=== PATIENT | male | born 1945 | race Caucasian/White ===

== ENCOUNTER 2021-09-24 05:12 | Emergency (ER) | payer OTHER ==
[~2021-09-24] VITALS: Ht 182.9 cm; Wt 100.0 kg
[2021-09-24 06:50] LABS: Urine Bacteria FEW /hpf (None Seen); Urine Blood 3+ /uL (Negative); Urine Mucus FEW (None Seen); Urine Specific Gravity 1.014 (1.001-1.035); Urine WBC 14 /hpf (0 - 3)
[2021-09-24 07:00] LABS: Basophils # (auto) 0 10 ^3/uL (0-0.2); Basophils % (auto) 0.4 % (0.0-2.0); Eosinophils # (auto) 0.4 10 ^3/uL (0-0.8); Eosinophils % (auto) 4.6 % (0.0-7.0); Hematocrit 36.4 % (41.0-53.0); Hemoglobin 12.6 g/dL (13.5-17.5); Lymphocytes # (auto) 1.3 10 ^3/uL (0.4-5.4); Lymphocytes % (auto) 14.4 % (10.0-50.0); Mean Corpuscular Hemoglobin 28.9 pg (28.0-32.0); Mean Corpuscular Hgb Conc. 34.6 g/dL (32.0-36.0); Mean Corpuscular Volume 83.5 fL (80.0-100.0); Monocytes # (auto) 0.8 10 ^3/uL (0-1.3); Monocytes % (auto) 8.9 % (0.0-12.0); Neutrophils # (auto) 6.6 10 ^3/uL (1.6-8.6); Neutrophils % (auto) 71.7 % (37.0-80.0); Nucleated Red Blood Cells % 0.1 %; Red Blood Cells 4.36 10^6/uL (4.5-5.90); Red Cell Distribution Width 14.7 % (11.8-14.3); White Blood Cell 9.2 10^3/uL (4.4-10.8)
[2021-09-24 07:56] LABS: Albumin 3.7 g/dL (3.4-5.0); Calcium 9.5 mg/dL (8.5-10.1); Potassium 3.2 mmol/L (3.5-5.1)
[2021-09-24 08:01] LABS: BUN/Creatinine Ratio 13.7; Bilirubin, Total 1.1 mg/dL (0.2-1.0); Total Protein 7.5 g/dL (6.4-8.2)
[2021-09-24 08:38] VITALS: BP 174/64
[2021-09-24] MEDS ORDERED: NITR-87 PO (10:36)
== END 2021-09-24 11:18 | disposition left against medical advice (07) ==
LOC: ER 05:12
DX: N39.0 Urinary tract infection, site not specified (principal); R31.9 Hematuria, unspecified; E11.9 Type 2 diabetes mellitus without complications; I10 Essential (primary) hypertension
CPT/HCPCS: 36415; 71045; 74176; 80053; 81001; 85025

== ENCOUNTER 2023-06-19 17:37 | Emergency (ER) | payer OTHER ==
[~2023-06-19] VITALS: Ht 182.9 cm; Wt 78.0 kg
[~2023-06-19 17:37] MED LIST: ACE650RS PO; ASPI-325 PO; ASPI81TA10 PO; ATOR20TA50 PO; DICL1GEL72 EX; FURO40TA4 PO; HYDR-4902 PO; INSU70IN3 SC; LIDO5DIS21 TOP; MET25T PO; METO25TA5 PO; NITR-87 PO; PEN400T PO; POTA-211 PO; SACU1TAB PO; SENN-62 PO; TICA90TA PO
[2023-06-19 18:51] LABS: Basophils # (auto) 0.1 10 ^3/uL (0-0.2); Basophils % (auto) 0.6 % (0.0-2.0); Eosinophils # (auto) 0.1 10 ^3/uL (0-0.8); Eosinophils % (auto) 0.5 % (0.0-7.0); Hematocrit 32.1 % (41.0-53.0); Hemoglobin 10.1 g/dL (13.5-17.5); Lymphocytes % (auto) 10.6 % (10.0-50.0); Mean Corpuscular Hemoglobin 28.6 pg (28.0-32.0); Mean Corpuscular Hgb Conc. 31.3 g/dL (32.0-36.0); Mean Corpuscular Volume 91.1 fL (80.0-100.0); Monocytes # (auto) 0.8 10 ^3/uL (0-1.3); Monocytes % (auto) 8.1 % (0.0-12.0); Neutrophils # (auto) 7.5 10 ^3/uL (1.6-8.6); Neutrophils % (auto) 80.2 % (37.0-80.0); Nucleated Red Blood Cells % 0.1 %; Red Blood Cells 3.52 10^6/uL (4.5-5.90); White Blood Cell 9.3 10^3/uL (4.4-10.8)
[2023-06-19 18:52] LABS: Red Cell Distribution Width 20.2 % (11.8-14.3)
[2023-06-19 19:09] LABS: Alanine Aminotransferase 12 U/L (7-40); Albumin 3.9 g/dL (3.2-4.8); Alkaline Phosphatase 699 U/L (46-116); Anion Gap 12 (5-15); Aspartate Aminotransferase 86 U/L (13-40); BUN/Creatinine Ratio 22.2 (10.0-20.0); Bilirubin, Total 0.8 mg/dL (0.2-1.0); Blood Urea Nitrogen 20 mg/dL (9-23); Calcium 9.3 mg/dL (8.5-10.1); Carbon Dioxide 26 mmol/L (20-30); Chloride 104 mmol/L (98-107); Glucose 176 mg/dL (74-106); Potassium 3.4 mmol/L (3.5-5.1); Sodium 142 mmol/L (136-145)
[2023-06-19 20:26] VITALS: PULSE 90; RESP 16; O2SAT 94
[2023-06-19] MEDS: POTASSIUM CHL 20 Meq TABLET PO ONE (23:26)
[2023-06-19] MEDS: SODIUM CHLORIDE 0.9% 1,000 ML IV ONE (23:26)
[2023-06-19] MEDS: IOHEXOL 350 MG/ML 100ML IJ ONE (23:43)
[2023-06-20 01:02] LABS: Urine Bacteria None Seen /hpf (None Seen)
[2023-06-20 01:24] LABS: Urine Blood 3+ /uL (Negative); Urine Clarity Turbid (Clear); Urine Color Yellow (Yellow); Urine Protein, UAD 1+ (Negative); Urine Specific Gravity 1.021 (1.001-1.035); Urine Urobilinogen Normal (Negative); Urine WBC 9 /hpf (0 - 3); Urine pH 5.5 (5.0-9.0)
[2023-06-20 07:30] VITALS: PULSE 101; RESP 15; O2SAT 99
[2023-06-20] MEDS ORDERED: ABIR250T2 PO (12:42)
[2023-06-20] MEDS ORDERED: METO-289 PO (12:42)
[2023-06-20] MEDS ORDERED: NIFE1TAB30 PO (12:42)
[2023-06-20] MEDS ORDERED: ASPI1TAB20 PO (12:42)
[2023-06-20] MEDS ORDERED: ATOR40TA52 PO (12:42)
[2023-06-20] MEDS ORDERED: SACU1TAB PO (12:42)
[2023-06-20] MEDS ORDERED: INSU100I28 IJ (13:14)
[2023-06-20] MEDS ORDERED: SENN-58 PO (13:14)
[2023-06-20] MEDS ORDERED: PRE1T PO (13:14)
[2023-06-20] MEDS ORDERED: EMPA1TAB3 PO (13:14)
[2023-06-20] MEDS ORDERED: INSU100I70 SC (13:14)
[2023-06-20] MEDS: HYDROcodone-ACET 10/325MG TAB PO ONE (17:36)
[2023-06-20 19:30] VITALS: BP 103/46; PULSE 91; RESP 26; TEMP 98.7; O2SAT 100
[2023-06-20] MEDS ORDERED: ATORVASTATIN 20 MG TAB PO SCH (22:00)
[2023-06-21] MEDS ORDERED: METOPROLOL SUCCINATE XL 50 MG TAB PO SCH (10:00)
[2023-06-21] MEDS ORDERED: ASPirin-EC 81 mg tab PO SCH (10:00)
== END 2023-06-20 20:45 | disposition home or self-care (01) ==
LOC: EDBD 17:37 → ER 17:37
DX: S22.030A Wedge compression fracture of third thoracic vertebra, initial encounter for closed fracture (principal); S42.001A Fracture of unspecified part of right clavicle, initial encounter for closed fracture; R26.9 Unspecified abnormalities of gait and mobility; E11.9 Type 2 diabetes mellitus without complications; I10 Essential (primary) hypertension; J44.9 Chronic obstructive pulmonary disease, unspecified; Z90.49 Acquired absence of other specified parts of digestive tract; Z79.899 Other long term (current) drug therapy; W19.XXXA Unspecified fall, initial encounter; Y93.89 Activity, other specified; Y92.009 Unspecified place in unspecified non-institutional (private) residence as the place of occurrence of the external cause; Y99.8 Other external cause status
CPT/HCPCS: 36415; 70450; 71250; 71275; 72125; 72128; 73090; 73552; 73562; 73590; 74176; 80053; 81001; 83880; 84484; 85025; 85379; 93005; 93970; 96360; 96361; 99285; J7030; Q9967